=== PATIENT | female | born 2000 | race Caucasian/White ===

== ENCOUNTER 2020-09-04 10:16 | Emergency (ER) | payer OTHER ==
[2020-09-04 10:27] VITALS: TEMP 98
[2020-09-04] MEDS ORDERED: diphenhydrAMINE 50 MG/ML 1 ML VIAL IVP STA (10:35)
[2020-09-04] MEDS ORDERED: methylPREDNISolone SOD SUCCI 125 MG/2 ML VIAL IV STA (10:35)
[2020-09-04] MEDS ORDERED: FAMOTIDINE 20 MG/2 ML VIAL IV STA (10:35)
--- NOTE | 2020-09-04 10:37 | ED ---
General Adult HPI - General Chief complaint: Allergic Reaction Stated complaint: Allergic reaction/food Time Seen by Provider: 09/04/20 10:28 Source: patient, RN notes reviewed Mode of arrival: ambulatory Limitations: no limitations - History of Present Illness Initial comments: 20-year-old female presents to the emergency room for possible ALLERGIC bebe ction. 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 Patient states that she tried to drink a seltzer that was grapefruit flavored today. Patient states immediate afterwards her lip started to tingle and then swelled up. He started to feel short of breath. She states she did not have her own EpiPen with her so used her friend's about 30 minutes prior to arrival. Patient states the swelling has improved significantly but she still feels a little short of breath. Patient denies swelling of the tongue or throat.Patient has no other complaints at this time including chest pain, abdominal pain, nausea or vomiting, headache, or visual changes. - Related Data Previous Rx's Medication Instructions Recorded predniSONE 50 mg PO DAILY #4 tablet 09/04/20 Allergies Allergy/AdvReac Type Severity Reaction Status Date / Time grapefruit Allergy Swelling Verified 09/04/20 11:10 pineapple Allergy Anaphylaxis Verified 09/04/20 11:10 Review of Systems ROS Statement: Those systems with pertinent positive or pertinent negative responses have been documented in the HPI. ROS Other: All systems not noted in ROS Statement are negative. Past Medical History Past Medical History: No Reported History History of Any Multi-Drug Resistant Organisms: None Reported Past Surgical History: Ear Surgery, Tonsillectomy Smoking Status: Current every day smoker Past Alcohol Use History: Occasional Past Drug Use History: Marijuana, Methamphetamine General Exam Limitations: no limitations General appearance: alert, in no apparent distress Head exam: Present: atraumatic, normocephalic, normal inspection Eye exam: Present: normal appearance, PERRL, EOMI. Absent: scleral icterus, conjunctival injection, periorbital swelling ENT exam: Present: normal exam, mucous membranes moist. Absent: normal oropharynx (No swelling of the lips tongue or throat on exam) Neck exam: Present: normal inspection, full ROM. Absent: tenderness, meningismus, lymphadenopathy Respiratory exam: Present: normal lung sounds bilaterally. Absent: respiratory distress, wheezes, rales, rhonchi, stridor Cardiovascular Exam: Present: regular rate, normal rhythm, normal heart sounds. Absent: systolic murmur, diastolic murmur, rubs, gallop, clicks GI/Abdominal exam: Present: soft, normal bowel sounds. Absent: distended, tenderness, guarding, rebound, rigid Skin exam: Present: warm, dry, intact, normal color. Absent: rash Course Vital Signs 09/04/20 10:23 Temperature 98.0 F Pulse Rate 116 H Respiratory 16 Rate Blood Pressure 109/69 O2 Sat by Pulse 100 Oximetry Medical Decision Making - Medical Decision Making Patient presents for ALLERGIC reaction after giving herself an epinephrine about 30 minutes prior to arrival. Patient had apparently had swelling of the lips at that time. Upon arrival no swelling of the lips tongue or throat. Slight shortness of breath however no respiratory distress on exam. No wheezing. Patient was given Solu-Medrol, Pepcid, and Benadryl in the emergency room through an IV. She was monitored for 3 hours and epinephrine administration and did not have any rebound symptoms. At this time patient is stable for discharge home with outpatient steroids. She is adamantly requesting discharge. She'll return here for any worsening symptoms. Disposition Clinical Impression: Allergic reaction Disposition: HOME SELF-CARE Condition: Good Instructions (If sedation given, give patient instructions): General Allergic Reaction (ED) Additional Instructions: Please take steroids as directed. Start these tomorrow as your were given steroids today through the emergency room. Follow-up with your doctor. If you develop any worsening symptoms such as shortness of breath or swelling of the lips tongue or throat return to the emergency room. Prescriptions: predniSONE 50 mg PO DAILY #4 tablet Is patient prescribed a controlled substance at d/c from ED?: No Referrals: Anmol Fermin MD [REFERRING] - 1-2 days Time of Disposition: 12:33
[2020-09-04 12:44] VITALS: BP 124/81; PULSE 107; RESP 22
== END 2020-09-04 13:18 | disposition home or self-care (01) ==
LOC: EC 10:16
DX: T78.1XXA Other adverse food reactions, not elsewhere classified, initial encounter (principal); F17.200 Nicotine dependence, unspecified, uncomplicated; F12.90 Cannabis use, unspecified, uncomplicated; F15.90 Other stimulant use, unspecified, uncomplicated
CPT/HCPCS: 99283; 96374; 96375; J1200; J2930

== ENCOUNTER 2022-10-10 05:19 | Emergency (ER) | payer OTHER ==
[2022-10-10 05:33] VITALS: BP 129/89; TEMP 98
[2022-10-10] MEDS ORDERED: KETOROLAC 15 MG/ML 1 ML VIAL IM STA (06:06)
[2022-10-10] MEDS ORDERED: HYDROcodone/APAP 5-325MG 1 EACH TAB PO STA (06:06)
[2022-10-10] MEDS ORDERED: LIDOCAINE 1% INJ 10MG/ML (30 ML VIAL-PF) SQ ONE (06:06)
[2022-10-10] MEDS ORDERED: SULFAMETHOX-TMP 800-160MG 1 EACH TAB PO STA (06:07)
--- NOTE | 2022-10-10 06:17 | ED ---
Skin/Abscess/FB HPI - General Chief complaint: Wound/Laceration Stated complaint: finger infection Time Seen by Provider: 10/10/22 05:57 Source: patient, RN notes reviewed Mode of arrival: ambulatory Limitations: no limitations - History of Present Illness Initial comments: This is a 22-year-old female who presents to the emergency department for concerns of an infection to the right thumb. States that a week ago, she got a splinter in her thumb. She tried to remove it with tweezers, but does not believe that she got it completely out. She has since started to develop swelling and purulent drainage from the thumb. Describes the pain as throbbing. States that when she squeezes the bottom of the thumb, she is able to express purulent discharge. Tetanus status is up-to-date. She's not had any fevers. Denies any fevers, chills, sore throat, cough, dyspnea, chest pain, palpitations, abdominal pain, nausea, vomiting, diarrhea, back pain, or headaches. MD complaint: abscess/boil Tetanus Up to Date: yes - Related Data Previous Rx's Medication Instructions Recorded EPINEPHrine (Auto Inject) [Epipen] 0.3 mg IM ONCE PRN #1 pen 09/04/20 predniSONE 50 mg PO DAILY #4 tablet 09/04/20 Cephalexin [Keflex] 500 mg PO Q6HR 7 Days #28 cap 10/10/22 Ibuprofen 600 mg PO Q8H PRN #20 tab 10/10/22 Sulfamethox-Tmp 800-160Mg [Bactrim 1 tab PO Q12HR 7 Days #14 tab 10/10/22 DS 800-160 mg] Allergies Allergy/AdvReac Type Severity Reaction Status Date / Time grapefruit Allergy Swelling Verified 09/04/20 11:10 pineapple Allergy Anaphylaxis Verified 09/04/20 11:10 Review of Systems ROS Statement: Those systems with pertinent positive or pertinent negative responses have been documented in the HPI. ROS Other: All systems not noted in ROS Statement are negative. Past Medical History Past Medical History: No Reported History History of Any Multi-Drug Resistant Organisms: None Reported Past Surgical History: Ear Surgery, Tonsillectomy Smoking Status: Current every day smoker Past Alcohol Use History: Occasional Past Drug Use History: Marijuana, Methamphetamine General Exam Limitations: no limitations General appearance: alert, in no apparent distress Head exam: Present: atraumatic, normocephalic, normal inspection Respiratory exam: Present: normal lung sounds bilaterally. Absent: respiratory distress, wheezes, rales, rhonchi, stridor Cardiovascular Exam: Present: regular rate, normal rhythm, normal heart sounds. Absent: systolic murmur, diastolic murmur, rubs, gallop, clicks Neurological exam: Present: alert, oriented X3, CN II-XII intact Psychiatric exam: Present: normal affect, normal mood Skin exam: Present: warm, dry, other (Abscess with swelling and active purulent drainage on the distal medial aspect of the right thumb.) Course Vital Signs 10/10/22 05:25 Temperature 98.0 F Pulse Rate 111 H Respiratory 16 Rate Blood Pressure 129/89 O2 Sat by Pulse 100 Oximetry Procedures - Incision & Drainage Consent Obtained: verbal consent Indication: Abscess Site: other (Right thumb) Size (cm): 2 Anesthetic Used: lidocaine 1% Amount (mLs): 2 I&D Cleaning Method: Alcohol Wipe Sterile Field Used?: Yes Scalpel Used: #11 Needle Aspiration Performed?: No Irrigation Performed?: Yes I&D Drainage Obtained: Pus, Blood Culture Obtained?: Yes Medical Decision Making - Medical Decision Making This is a 22-year-old female who presents to the emergency department for concerns of a thumb infection. Was pt. sent in by a medical professional or institution? @ -No Did you speak to anyone other than the patient for history? @ -No Did you review nursing and triage notes? @ -Yes, and I agree, it is accurate with regards to the patient's symptoms. Were old charts reviewed? @ -No Differential Diagnosis? @ -Differential Thumb Swelling/Drainage: Abscess, cellulitis, gout, this is not meant to be an all-inclusive list. X-rays interpreted by me (1pt min.)? @ -X-ray of the right thumb obtained. My interpretation identifies no radiodense foreign bodies. What testing was considered but not performed? (CT, X-rays, U/S, labs)? Why? @ -None What meds were considered but not given? Why? @ -None Did you discuss the management of the patient with other professionals? @ -No Did you reconcile home meds? @ -No Was smoking cessation discussed for >3mins.? @ -No Was critical care preformed (if so, how long)? @ -No Were there social determinants of health that impacted care today? How? (Homelessness, low income, unemployed, alcoholism, drug addiction, transportation, low edu. Level, literacy, decrease access to med. care, fci, rehab)? @ -No Was there de-escalation of care discussed even if they declined? (Discuss DNR or withdrawal of care, Hospice)? @ -No What co-morbidities impacted this encounter? (DM, HTN, Smoking, COPD, CAD, Cancer, CVA, Hep., AIDS, mental health diagnosis, sleep apnea, morbid obesity)? @ -None Was patient admitted / discharged? @ -Discharged. X-ray of the right thumb obtained revealing no radiodense foreign bodies. Incision and drainage was performed on the right thumb, expressing a large amount of purulent discharge. She noticed significant improvement in symptoms following the I&D. Cultures were obtained in the event the Bactrim and Keflex are not effective. Her tetanus status is up-to-date. She was given a dose of Keflex and Bactrim in the emergency department. Prescription for Bactrim and Keflex provided with dosing instructions reviewed. She is instructed to alternate with ibuprofen and Tylenol for pain relief and continue to apply warm compresses. Undiagnosed new problem with uncertain prognosis? @ -None Drug Therapy requiring intensive monitoring for toxicity (Heparin, Nitro, Insulin, Cardizem)? @ -None Were any procedures done? @ -Yes, I&D on the right thumb. Diagnosis/symptom? @ -Right thumb abscess Acute, or Chronic, or Acute on Chronic? @ -Acute Uncomplicated (without systemic symptoms) or Complicated (systemic symptoms)? @ -Uncomplicated Side effects of treatment? @ -None Exacerbation, Progression, or Severe Exacerbation] @ -Not applicable Poses a threat to life or bodily function? @ -No Return precautions reviewed in depth, the patient is instructed to return to the emergency department with any new, worsening, or concerning symptoms. Patient verbalized understanding. This case was discussed in detail with the attending ED physician, Dr. Sifuentes. Presentation, findings, and treatment plan discussed in detail as well. - Radiology Data Radiology results: report reviewed, image reviewed Disposition Clinical Impression: Abscess, Splinter of finger Disposition: HOME SELF-CARE Instructions (If sedation given, give patient instructions): Abscess Incision and Drainage (ED), Abscess (ED) Additional Instructions: Return to the emergency department with any new, worsening, or concerning symptoms. Take both antibiotics as prescribed for 7 days. Alternate with ibuprofen and Tylenol as needed for pain relief. Apply warm compresses. Follow up with your primary care provider in 1-2 days. Prescriptions: Sulfamethox-Tmp 800-160Mg [Bactrim DS 800-160 mg] 1 tab PO Q12HR 7 Days #14 tab Ibuprofen 600 mg PO Q8H PRN #20 tab PRN Reason: Pain Cephalexin [Keflex] 500 mg PO Q6HR 7 Days #28 cap Is patient prescribed a controlled substance at d/c from ED?: No Referrals: None,Stated [Primary Care Provider] - 1-2 days
--- NOTE | 2022-10-10 06:21 | XR ---
EXAMINATION TYPE: XR finger RT DATE OF EXAM: 10/10/2022 COMPARISON: NONE HISTORY: Pain and swelling. Infection. Possible retained splinter. TECHNIQUE: 3 views right thumb. FINDINGS: No acute fracture or dislocation is seen. No bony destruction. Joint spaces are preserved. No suspicious radiodense soft tissue foreign body identified. IMPRESSION: As above.
[2022-10-10] MEDS ORDERED: IBUPROFEN 600 MG STARTER PACK 4 TAB BTL PO STA (06:32)
[2022-10-10] MEDS ORDERED: ACET/COD 300 MG/30 MG STARTER PACK 6 TAB BTL PO STA (06:32)
[2022-10-10] MEDS ORDERED: CEPHALEXIN 500 MG CAP PO STA (06:39)
[2022-10-10 07:13] VITALS: PULSE 110; RESP 18
== END 2022-10-10 07:12 | disposition home or self-care (01) ==
LOC: EC 05:19
DX: L02.511 Cutaneous abscess of right hand (principal); F17.200 Nicotine dependence, unspecified, uncomplicated; F12.90 Cannabis use, unspecified, uncomplicated; Z91.018 Allergy to other foods; W45.8XXA Other foreign body or object entering through skin, initial encounter
CPT/HCPCS: 87070; 87205; 73140; 99283; 96372; 10060; J2001; J1885; 87077; 87186